=== PATIENT | male | born 1990 | race Caucasian/White ===

== ENCOUNTER 2023-10-07 15:42 | Emergency (ER) | payer BC ==
[~2023-10-07] VITALS: Ht 170.2 cm; Wt 59.1 kg
[2023-10-07] MEDS ORDERED: PRED1TABL PO (16:26)
[2023-10-07] MEDS ORDERED: ZOLO100T PO (16:26)
[2023-10-07] MEDS ORDERED: LITH300T PO (16:26)
[2023-10-07] MEDS ORDERED: PRED5CON PO (16:26)
[2023-10-07] MEDS ORDERED: PRED5PAK PO (16:28)
[2023-10-07] MEDS ORDERED: METH-1164 PO (16:28)
[2023-10-07] MEDS ORDERED: CLONI1TA PO (16:29)
[2023-10-07 17:42] VITALS: BP 114/58; TEMP 98.2; O2SAT 98
== END 2023-10-07 20:04 | disposition left against medical advice (07) ==
LOC: M ED 15:42
DX: Z53.21 Procedure and treatment not carried out due to patient leaving prior to being seen by health care provider (principal)